=== PATIENT | female | born 1930 | race Caucasian/White ===

== ENCOUNTER 2018-09-24 03:52 | Observation (INO) ==
[2018-09-24 04:37] LABS: Baso # (Auto) 0.1 th/mm3 (0.0-0.2); Baso % (Auto) 0.5 % (0.0-2.0); Eos # (Auto) 0.2 th/mm3 (0.0-0.4); Eos % (Auto) 1.5 % (0.0-4.0); Hematocrit 44.1 % (35.0-46.0); Hemoglobin 15.1 gm/dL (11.6-15.3); Lymph % (Auto) 19.2 % (9.0-44.0); Mean Corpuscular HGB Conc 34.2 % (32.0-36.0); Mean Corpuscular Hemoglobin 30.8 pg (27.0-34.0); Mean Corpuscular Volume 90.1 fL (80.0-100.0); Mean Platelet Volume 9.1 fL (7.0-11.0); Mono # (Auto) 0.8 th/mm3 (0.0-0.9); Mono % (Auto) 5.5 % (0.0-8.0); Neut # (Auto) 11.3 th/mm3 (1.8-7.7); Neut % (Auto) 73.3 % (16.0-70.0); Platelet Count 314 th/mm3 (150-450); Red Blood Count 4.89 mil/mm3 (4.00-5.30); Red Cell Distribution Width 13.9 % (11.6-17.2); White Blood Count 15.5 th/mm3 (4.0-11.0)
[2018-09-24 04:51] LABS: Alanine Aminotransferase 16 U/L (10-53); Albumin 4.1 g/dL (3.4-5.0); Anion Gap 11 meq/L (5-15); Aspartate Aminotransferase 19 U/L (15-37); Blood Urea Nitrogen 32 mg/dL (7-18); Calcium 9.1 mg/dL (8.5-10.1); Carbon Dioxide 21.8 meq/L (21.0-32.0); Chloride 102 meq/L (98-107); Glomerular Filtration Rate 37 mL/min (>89); Glucose,Random 100 mg/dL (74-106); Lipase 268 U/L (73-393); Magnesium 1.9 mg/dL (1.5-2.5); Potassium 4.6 meq/L (3.5-5.1); Sodium 135 meq/L (136-145)
[2018-09-24 04:56] LABS: Alkaline Phosphatase 69 U/L (45-117); Total Protein 7.2 g/dL (6.4-8.2)
[2018-09-24] MEDS ORDERED: Sodium Chlor 0.9% Inj 500 ML IV.SIG SCH ×2 (05:00→07:00)
[2018-09-24 05:01] LABS: Activated Partial Thrombo Time 25.2 sec (23.4-31.7); Prothrombin Time 10.6 sec (9.8-11.6)
[2018-09-24 05:06] LABS: Creatine Kinase 72 U/L (26-192)
[2018-09-24] MEDS ORDERED: Morphine Inj 4 MG/ML Vial IV.PUSH ONE (05:13)
--- NOTE | 2018-09-24 05:51 | CT ---
EXAM DATE: 09/24/2018 5:37 AM EST AGE/SEX: 87 years / Female INDICATIONS: Left lower quadrant pain and diarrhea. CLINICAL DATA: This is the patient's initial encounter. Patient reports that signs and symptoms have been present for 1 day and indicates a pain score of 8/10. MEDICAL/SURGICAL HISTORY: Gastroesophageal reflux disease. Hypertension. Cholecystectomy. Isaac ia repair ORAL CONTRAST: No oral contrast ingested. RADIATION DOSE: 6.64 CTDI (mGy) COMPARISON: No prior exams available for comparison. TECHNIQUE: Multiple contiguous axial images were obtained through the abdomen and pelvis following b olus infusion of 46 ml Visipaque 320 (iodixanol) nonionic water-soluble contrast as a single exam d ose. No oral contrast ingested. Using automated exposure control and adjustment of the mA and/or kV according to patient size, radiation dose was kept as low as reasonably achievable to obtain optimal diagnostic quality images. DICOM format image data is available electronically for review and compar yuridia. FINDINGS: Lower chest: There is atelectasis at the lung bases. Hepatobiliary: No focal liver lesion is identified. Hepatic vasculature demonstrates no abnormality. Gallbladder is absent with innumerable clips in the gallbladder fossa. There is no bile duct dilatati on. Kidneys: No hydronephrosis or stone. There is a hyperdense lesion at the left upper pole kidney measu ring 1.4 cm with Hounsfield unit measurements of 35. There are 2 additional low-density lesions in th e mid left kidney that are incidental and too small to characterize measuring approximately 7 mm each . Adrenal Glands: Within normal limits. Spleen: Within normal limits. Pancreas: Within normal limits. Vascular: The aorta is nonaneurysmal. There is severe atherosclerotic disease. Bowel/Mesentery: The stomach and small bowel demonstrate no abnormality. No acute colon abnormality i s seen. There is no free intraperitoneal air or fluid. There is sigmoid diverticulosis. Abdominal Wall: No hernia is visualized. Retroperitoneum: No lymphadenopathy. Bladder: Not well visualized secondary to artifact but no definite abnormality is seen. Reproductive: Not well visualized secondary to artifact but no definite abnormality is seen. Inguinal: No lymphadenopathy or hernia. Musculoskeletal: No acute osseous abnormality is identified. There is levoscoliosis with multilevel d egenerative change throughout the lumbar spine. Left hip arthroplasty hardware is present and causes beam hardening artifact and partial obscuration of the surrounding structures. CONCLUSION: 1. No acute abnormality is identified to explain the left lower quadrant pain. There is sigmoid dive rticulosis but no inflammatory changes are present. 2. There is a 1.4 cm hyperdense lesion in the left upper pole kidney. This could represent a complex cyst or solid lesion. Suggest correlating with any prior imaging studies. If none are available sugg est elective renal ultrasound for further evaluation. 3. Severe atherosclerotic disease. Electronically signed by: Anshul Davis MD 09/24/2018 5:50 AM EST
[2018-09-24] MEDS ORDERED: Bisacodyl 10 MG Supp RECTAL PRN (06:28)
[2018-09-24] MEDS ORDERED: Acetaminophen 325 MG Tablet PO PRN (06:28)
--- NOTE | 2018-09-24 06:32 | ED ---
HPI General Chief complaint: Chest Pain Stated complaint: Medical Time Seen by Provider: 09/24/18 04:16 Source: patient and EMS Mode of arrival: EMS Limitations: no limitations History of Present Illness HPI narrative: Patient is an 87-year-old female who comes in after near [facility]. She says she got up to go to the bathroom tonight and had diarrhea. She says she then walked out to talk to her daughter and she was unable to speak and got very sweaty and almost passed out. She complains of left lower quadrant abdominal pain. She says while this was happening she had some slight pain to her chest, but no longer has the chest pain. She denies shortness of breath. She did see her doctor prior to coming to [place] a few months ago and had a negative stress test that time. She does have a history of aortic stenosis. She says she has had issues with diarrhea on and off but today it is much worse. She denies any recent antibiotic use. Her daughter reports that she has lost about 20 pounds in the past month because she does not want to eat or drink anything. Severity is moderate. Related Data Home Medications Medication Instructions Recorded Confirmed Norvasc 5 mg PO DAILY 09/24/18 09/24/18 aspirin [Aspir-81] 81 mg PO DAILY 09/24/18 09/24/18 atenolol 25 mg PO DAILY 09/24/18 09/24/18 dicyclomine 10 mg PO DAILY 09/24/18 09/24/18 ezetimibe [Zetia] 10 mg PO DAILY 09/24/18 09/24/18 meclizine 25 mg PO DAILY PRN 09/24/18 09/24/18 pantoprazole [Protonix] 40 mg PO DAILY 09/24/18 09/24/18 ranitidine HCl [Zantac] 300 mg PO DAILY 09/24/18 09/24/18 ropinirole [Requip] 0.25 mg PO HS 09/24/18 09/24/18 tolterodine [Detrol LA] 2 mg PO DAILY 09/24/18 09/24/18 valsartan [Diovan] 320 mg PO DAILY 09/24/18 09/24/18 Allergies Allergy/AdvReac Type Severity Reaction Status Date / Time No Known Allergies Allergy Verified 09/24/18 03:57 Review of Systems ROS: all other systems reviewed are negative Constitutional Denies chills and Denies fever(s) ENT Denies dizziness Cardiovascular Reports chest pain and Denies dyspnea Respiratory Denies cough and Denies dyspnea Gastrointestinal Reports abdominal pain and Reports diarrhea Musculoskeletal Denies myalgias and Denies arthralgias Integumentary/Breasts Denies sores and Denies wounds Neurologic Denies focal weakness and Denies numbness FORMERLY [facility], [facility] Medical History Medical History GERD (gastroesophageal reflux disease) (Acute) HTN (hypertension) (Acute) High cholesterol (Acute) Vertigo (Acute) Surgical History Surgical History History of hip surgery (Acute) Hx of cholecystectomy (Acute) Hx of hernia repair (Acute) Social History Social History Substance History: No History of Abuse Smoking Status: Former smoker How Often Do You Have a Drink Containing Alcohol: 2 to 4 times a month Recent Travel in [facility] within the Last 8 Weeks: No Recent Out of Country Travel within the Last 8 Weeks: No Immunization History Tetanus Immunization: Unsure Exam Narrative Exam Narrative: GENERAL: Awake and alert, in no acute distress. SKIN: Focused skin assessment warm/dry. No wounds or signs of infection. HEAD: Atraumatic. Normocephalic. EYES: Pupils equal and round. No scleral icterus. No injection or drainage. ENT: Mucous membranes pink and moist. NECK: Trachea midline. No JVD. CARDIOVASCULAR: Regular rate and rhythm. No murmur appreciated. RESPIRATORY: No accessory muscle use. Clear to auscultation. Breath sounds equal bilaterally. GASTROINTESTINAL: Abdomen soft, nondistended. Tender to palpation of the LLQ. No rebound or guarding. MUSCULOSKELETAL: No obvious deformities. No clubbing. No cyanosis. No edema. NEUROLOGICAL: Awake and alert. No obvious cranial nerve deficits. Motor grossly within normal limits. Normal speech. PSYCHIATRIC: Appropriate mood and affect; insight and judgment normal. Course Initial Documented Vital Signs Temperature 98.2 F 09/24/18 03:54 Pulse Rate 78 09/24/18 03:54 Respiratory Rate 18 09/24/18 03:54 Blood Pressure 132/65 09/24/18 03:54 Pulse Oximetry 97 09/24/18 03:54 Last Documented Vital Signs Temperature 98.2 F 09/24/18 03:54 Pulse Rate 79 09/24/18 05:55 Respiratory Rate 16 09/24/18 05:55 Blood Pressure 141/77 H 09/24/18 05:55 Pulse Oximetry 97 09/24/18 05:55 Medical Decision Making MDM Narrative Medical decision making narrative: Patient is an 87 year old female who comes in complaining of a near syncopal episode with abdominal pain and diarrhea. Exam shows LLQ tenderness. IV established, labs sent. Labs show a WBC count of 15. BUN is 32, Cr of 1.36. CT abd/pelvis shows no acute abnormalities. Given IVF, pain medicine. Patient will be placed in observation for near syncope, dehydration, continued diarrhea. Medical Screen Exam Complete: Yes Emergency Medical Condition: Yes Differential Diagnosis Differential Diagnosis: dehydration, colitis, diverticulitis, ACS Medical Records Medical records reviewed: Yes I reviewed the patient's medical records. Lab Data Lab results reviewed: Yes I reviewed the patient's lab results. Result diagrams: 09/24/18 04:20 09/24/18 04:20 Lab Results 09/24/18 09/24/18 09/24/18 Range/Units 04:20 04:20 04:20 WBC 15.5 H (4.0-11.0) th/mm3 RBC 4.89 (4.00-5.30) mil/mm3 Hgb 15.1 (11.6-15.3) gm/dL Hct 44.1 (35.0-46.0) % MCV 90.1 (80.0-100.0) fL MCH 30.8 (27.0-34.0) pg MCHC 34.2 (32.0-36.0) % RDW 13.9 (11.6-17.2) % Plt Count 314 (150-450) th/mm3 MPV 9.1 (7.0-11.0) fL Neut % (Auto) 73.3 H (16.0-70.0) % Lymph % (Auto) 19.2 (9.0-44.0) % [place] % (Auto) 5.5 (0.0-8.0) % Eos % (Auto) 1.5 (0.0-4.0) % Baso % (Auto) 0.5 (0.0-2.0) % Neut # (Auto) 11.3 H (1.8-7.7) th/mm3 Lymph # (Auto) 3.0 (1.0-4.8) th/mm3 [place] # (Auto) 0.8 (0.0-0.9) th/mm3 Eos # (Auto) 0.2 (0.0-0.4) th/mm3 Baso # (Auto) 0.1 (0.0-0.2) th/mm3 WBC Differential . Differential Comment Auto diff final PT 10.6 (9.8-11.6) sec INR 1.0 Ratio APTT 25.2 (23.4-31.7) sec Sodium 135 L (136-145) meq/L Potassium 4.6 (3.5-5.1) meq/L Chloride 102 (98-107) meq/L Carbon Dioxide 21.8 (21.0-32.0) meq/L Anion Gap 11 (5-15) meq/L BUN 32 H (7-18) mg/dL Creatinine 1.36 H (0.50-1.00) mg/dL Estimated GFR 37 L (>89) mL/min Random Glucose 100 (74-106) mg/dL Lactic Acid (0.4-2.0) mmol/L Calcium 9.1 (8.5-10.1) mg/dL Magnesium 1.9 (1.5-2.5) mg/dL Total Bilirubin 0.5 (0.2-1.0) mg/dL AST 19 (15-37) U/L ALT 16 (10-53) U/L Alkaline Phosphatase 69 (45-117) U/L Total Creatine Kinase 72 (26-192) U/L Troponin I Less than 0.02 L (0.02-0.05) ng/mL Total Protein 7.2 (6.4-8.2) g/dL Albumin 4.1 (3.4-5.0) g/dL Lipase 268 (73-393) U/L 09/24/18 Range/Units 04:20 WBC (4.0-11.0) th/mm3 RBC (4.00-5.30) mil/mm3 Hgb (11.6-15.3) gm/dL Hct (35.0-46.0) % MCV (80.0-100.0) fL MCH (27.0-34.0) pg MCHC (32.0-36.0) % RDW (11.6-17.2) % Plt Count (150-450) th/mm3 MPV (7.0-11.0) fL Neut % (Auto) (16.0-70.0) % Lymph % (Auto) (9.0-44.0) % [place] % (Auto) (0.0-8.0) % Eos % (Auto) (0.0-4.0) % Baso % (Auto) (0.0-2.0) % Neut # (Auto) (1.8-7.7) th/mm3 Lymph # (Auto) (1.0-4.8) th/mm3 [place] # (Auto) (0.0-0.9) th/mm3 Eos # (Auto) (0.0-0.4) th/mm3 Baso # (Auto) (0.0-0.2) th/mm3 WBC Differential Differential Comment PT (9.8-11.6) sec INR Ratio APTT (23.4-31.7) sec Sodium (136-145) meq/L Potassium (3.5-5.1) meq/L Chloride (98-107) meq/L Carbon Dioxide (21.0-32.0) meq/L Anion Gap (5-15) meq/L BUN (7-18) mg/dL Creatinine (0.50-1.00) mg/dL Estimated GFR (>89) mL/min Random Glucose (74-106) mg/dL Lactic Acid 1.5 (0.4-2.0) mmol/L Calcium (8.5-10.1) mg/dL Magnesium (1.5-2.5) mg/dL Total Bilirubin (0.2-1.0) mg/dL AST (15-37) U/L ALT (10-53) U/L Alkaline Phosphatase (45-117) U/L Total Creatine Kinase (26-192) U/L Troponin I (0.02-0.05) ng/mL Total Protein (6.4-8.2) g/dL Albumin (3.4-5.0) g/dL Lipase (73-393) U/L Imaging Data Radiologist's impression: Abdomen/Pelvis CT 09/24/18 04:16 CONCLUSION: 1. No acute abnormality is identified to explain the left lower quadrant pain. There is sigmoid diverticulosis but no inflammatory changes are present. 2. There is a 1.4 cm hyperdense lesion in the left upper pole kidney. This could represent a complex cyst or solid lesion. Suggest correlating with any prior imaging studies. If none are available suggest elective renal ultrasound for further evaluation. 3. Severe atherosclerotic disease. ECG Data EKG Prior to Arrival: No Attestation: I personally reviewed and interpreted this ECG as follows: Interpretation: ECG shows left bundle branch block Discharge Plan Discharge Disposition Patient Disposition: ED Admit(ED Internal Use Only) Discharge Condition Condition: Stable Discharge Details Diagnosis: Near syncope, Dehydration, Diarrhea Physicians Team ED Provider: Samantha Pedraza Attending Provider: Zabrina Ecsobar Status ED Status: Admitted Observation Patient
--- NOTE | 2018-09-24 07:47 | P.HPIM ---
History of Present Illness Primary Care Physician: José Nash History of Present Illness: 87-year-old pleasant female with history of HTN, HLD, hyperthyroidism , multinodular goiter, aortic stenosis, and GERD presented to the ED after feeling like she was going to pass out earlier this morning. The patient states that she was sleeping when she began to have diarrhea around 3 AM. She states she got up to use the restroom and had a significant amount of watery, nonbloody diarrhea. On her way back to her bedroom she states she began feeling lightheaded, sweaty, and like she was going to pass out. She states she got her daughter but was unable to communicate. Her daughter who is present at the bedside states that the patient was just staring blankly. EMS was called and within 5 minutes the patient was able to speak. She states that she had some left-sided chest pain that radiated to her left shoulder at the time of the event. She denied any shortness of breath, palpitations, or vomiting. She states that she was nauseated. Presently, she reports that she is feeling much better but continues to have watery diarrhea. She states she has had about 5-6 episodes total and she is experiencing some incontinence. She also complains of some left lower quadrant crampy abdominal pain associated with the diarrhea. She states she has a history of diverticulitis which this feels similar to. She also reports in the last month she has lost about 14 lb which she attributes to poor PO intake. She states that she has dysphagia and can only force herself to swallow a couple bites of food before she feels like vomiting and choking. She is able to tolerate liquids. The dysphagia has been present for approximately a month. She has a h/o of multinodular goiter and on ultrasound last year was noted to have a new ~3.5 cm nodule in the left lower lobe (reviewed endocrinology notes that patient provides). She had an uptake scan which showed the nodule was hot and she was started on methimazole. She reports she had blood work about a week ago for her health workers her called her yesterday and informed her she was going to increase her methimazole to 10 mg daily. She states aside from the dysphagia she also has a cough that has always been attributed to sinus drainage as well as a pain in the left side of her neck where she states she has felt a lump. She denies any history of head or neck radiation. She used to smoke but quit in 1980. The patient is from [place] but has been here for the past month living with her daughter for part of the year. She follows with a wire weaving loom setter, primary care physician, an health workers in [place]. She recently saw Dr. Levy (local wire weaving loom setter) in the past month at the urging of her PCP back in [place] whom she states was very concerned about her aortic stenosis. She apparently had a stress test that was negative. She states her last echo was in April. She states she has passed out before but denies CHF or coronary artery disease though she has never had a cath. She also reports in the past she was told she may have a small tumor in her kidney but she states nothing more was done. CT A/P here in the ED showed a 1.4 cm hyperdense lesion in the left upper pole. PMH: HTN, hyperthyroidism, multinodular goiter, HLD, GERD, OA, macular degeneration diverticulosis, vertigo, aortic stenosis Surgical Hx: L hip replacement, left thumb surgery, cataract, T&A, umbilical hernia repair, lap maria luz, D&C, hemorrhoidectomy, right knee arthroscopy Family Hx: mother in her 90s froma stroke, father at 43 from a head injury Social Hx: quit smoking 1980, prior smoked up to 1PPD x 15 years, denies EtOH or recreational drug - Diagnosis (1) Diverticulitis (2) Near syncope (3) Dehydration (4) Diarrhea (5) Dysphagia (6) Weight loss Review of Systems All other systems reviewed negative except as stated in HPI [facility] - History History Provided By: Patient - Medical History Medical History: Medical History (Last Updated 09/24/18 @ 08:12 by Zabrina Escobar MD) Diverticulosis GERD (gastroesophageal reflux disease) HTN (hypertension) High cholesterol Hyperthyroidism Vertigo - Surgical History Surgical History: Surgical History (Last Reviewed 09/24/18 @ 07:06 by Melly Grider) History of hip surgery Hx of cholecystectomy Hx of hernia repair - Family History Family History: Family History (Last Updated 09/24/18 @ 08:12 by Zabrina Escobar MD) Mother Stroke - Social History I have reviewed the patient's Social History: Yes - Tobacco History Smoking Status: Former smoker - Alcohol History How Often Do You Have a Drink Containing Alcohol: 2 to 4 times a month - Substance Use History Substance History: No History of Abuse - Travel History Recent Travel in the [place] Within the Last 8 Weeks: No Recent Travel Out of the Country Within the Last 8 Weeks: No - Immunization History Tetanus Immunization: Unsure Medications and Allergies Active Medications: Active Medications Acetaminophen (Tylenol) 650 mg PO Q4H PRN PRN Reason: Temp > 100.4 Al Hydroxide/Mg Hydroxide (Milk Of Magnesia Liq) 30 ml PO Q12H PRN PRN Reason: Mild Constipation Aspirin (Ecotrin) 81 mg PO DAILY HERLINDA Bisacodyl (Dulcolax Supp) 10 mg RECTAL DAILY PRN PRN Reason: SEVERE CONSITIPATION Sodium Chloride (Ns Inj) 1,000 mls @ 100 mls/hr IV.CONT .Q10H HERLINDA Lactulose (Lactulose Liq) 30 ml PO DAILY PRN PRN Reason: SEVERE CONSITIPATION Ondansetron HCl (Zofran Inj) 4 mg IV.PUSH Q6H PRN PRN Reason: NAUSEA OR VOMITING Pantoprazole Sodium (Protonix) 40 mg PO DAILY HERLINDA Ropinirole HCl (Requip) 0.25 mg PO HS HERLINDA Senna/Docusate Sodium (Paulette-Colace) 1 tab PO BID HERLINDA Sennosides (Senokot) 17.2 mg PO Q12H PRN PRN Reason: Moderate Constipation Sodium Chloride (Ns Flush) 2 ml IV.FLUSH BID HERLINDA Sodium Chloride (Ns Flush) 2 ml IV.FLUSH PRN PRN PRN Reason: FLUSH AFTER USING IV ACCESS Allergies Allergy/AdvReac Type Severity Reaction Status Date / Time No Known Allergies Allergy Verified 09/24/18 03:57 Home Medications Medication Instructions Recorded Confirmed Type Norvasc 5 mg PO DAILY 09/24/18 09/24/18 History aspirin [Aspir-81] 81 mg PO DAILY 09/24/18 09/24/18 History atenolol 25 mg PO DAILY 09/24/18 09/24/18 History dicyclomine 10 mg PO DAILY 09/24/18 09/24/18 History ezetimibe [Zetia] 10 mg PO DAILY 09/24/18 09/24/18 History meclizine 25 mg PO DAILY PRN 09/24/18 09/24/18 History methimazole 10 mg PO DAILY 09/24/18 09/24/18 History pantoprazole [Protonix] 40 mg PO DAILY 09/24/18 09/24/18 History ranitidine HCl [Zantac] 300 mg PO DAILY 09/24/18 09/24/18 History ropinirole [Requip] 0.25 mg PO HS 09/24/18 09/24/18 History tolterodine [Detrol LA] 2 mg PO DAILY 09/24/18 09/24/18 History valsartan [Diovan] 320 mg PO DAILY 09/24/18 09/24/18 History Exam Vital signs: Vital Signs 09/24/18 03:54 09/24/18 05:55 09/24/18 07:20 Temperature 98.2 F Pulse Rate 78 79 Respiratory Rate 18 16 Blood Pressure 132/65 141/77 H Pulse Oximetry 97 97 96 09/24/18 07:22 Temperature Pulse Rate 75 Respiratory Rate 20 Blood Pressure 113/58 L Pulse Oximetry 95 Intake & Output 09/23/18 09/24/18 09/24/18 18:59 06:59 18:59 Intake Total 500 / 500 Balance 500 / 500 Weight 55.338 kg Intake: IV 500 / 500 NS Inj 500 ML @ 1000 mls/hr IV. 500 / 500 SIG BOLUS HERLINDA Rx#:[id number] Narrative: GENERAL: WN, WD pleasant elderly female resting comfortably in bed in [facility]. SKIN: Warm and dry. No rashes, jaundice, ecchymoses. HEENT: AT/NC. Nasal cannula in place. PERRLA. EOMI. No nystagmus. MMM. Dentures in place. Uvula midline. NECK: Supple no tender LAD or JVD. There is a ~1cm, firm, nonmobile palpable nodule in her left superior anterior cervical chain. No overlying skin changes. No other appreciable lymphadenopathy. Multinodular goiter. HEART: RRR with a harsh 3/6 OLY that radiates to the carotids bilaterally. LUNGS: Breathing comfortably. CTAB without wheezes or crackles. ABDOMEN: +BS, soft, LLQ TTP. No guarding or rebound. EXTREMITIES: No LE edema. 2+ pedal pulses. NEURO: Awake and alert. CN II-XII intact. Strength 5/5 bilaterally. Sensation intact. PSYCH: Appropriate mood and affect. Results - Labs CBC & Chem 7: 09/24/18 04:20 09/24/18 04:20 Labs: Short CBC 09/24/18 Range/Units 04:20 WBC 15.5 H (4.0-11.0) th/mm3 Hgb 15.1 (11.6-15.3) gm/dL Hct 44.1 (35.0-46.0) % Plt Count 314 (150-450) th/mm3 BMP 09/24/18 04:20 Sodium 135 L Potassium 4.6 Chloride 102 Carbon Dioxide 21.8 BUN 32 H Creatinine 1.36 H Calcium 9.1 Cardiac Enzymes 09/24/18 Range/Units 04:20 Total Creatine Kinase 72 (26-192) U/L Troponin I Less than 0.02 L (0.02-0.05) ng/mL Liver Function 09/24/18 Range/Units 04:20 Total Bilirubin 0.5 (0.2-1.0) mg/dL AST 19 (15-37) U/L ALT 16 (10-53) U/L Alkaline Phosphatase 69 (45-117) U/L Albumin 4.1 (3.4-5.0) g/dL - Imaging Abdomen/Pelvis CT 09/24/18 04:16 CONCLUSION: 1. No acute abnormality is identified to explain the left lower quadrant pain. There is sigmoid diverticulosis but no inflammatory changes are present. 2. There is a 1.4 cm hyperdense lesion in the left upper pole kidney. This could represent a complex cyst or solid lesion. Suggest correlating with any prior imaging studies. If none are available suggest elective renal ultrasound for further evaluation. 3. Severe atherosclerotic disease. Caprini VTE Risk Assessment Caprini VTE Risk Assessment: Moderate/High Risk (score >= 2) Caprini Risk Assessment Model: Point Value = 1 Point Value = 2 Point Value = 3 Point Value = 5 Age 41-60 Minor surgery BMI > 25 kg/m2 Swollen legs Varicose veins or History of unexplained or recurrent spontaneous Oral contraceptives or hormone replacement Sepsis (< 1 month) Serious lung disease, including pneumonia (< 1 month) Abnormal pulmonary function Acute myocardial infarction Congestive heart failure (< 1 month) History of inflammatory bowel disease Medical patient at bed rest Age 61-74 Arthroscopic surgery Major open surgery (> 45 min) Laparoscopic surgery (> 45 min) Malignancy Confined to bed (> 72 hours) Immobilizing plaster cast Central venous access Age >= 75 History of VTE Family history of VTE Factor V Leiden Prothrombin [id number] Lupus anticoagulant Anticardiolipin antibodies Elevated serum homocysteine Heparin-induced thrombocytopenia Other congenital or acquired thrombophilia Stroke (< 1 month) Elective arthroplasty Hip, pelvis, or leg fracture Acute spinal cord injury (< 1 month) Prophylaxis Regimen: Total Risk Factor Score Risk Level Prophylaxis Regimen 0-1 Low Early ambulation 2 Moderate Order ONE of the following: *Sequential Compression Device (SCD) *Heparin 5000 units SQ BID 3-4 Higher Order ONE of the following medications: *Heparin 5000 units SQ TID *Enoxaparin/Lovenox 40 mg SQ daily (WT < 150 kg, CrCl > 30 mL/min) *Enoxaparin/Lovenox 30 mg SQ daily (WT < 150 kg, CrCl > 10-29 mL/min) *Enoxaparin/Lovenox 30 mg SQ BID (WT < 150 kg, CrCl > 30 mL/min) AND/OR *Sequential Compression Device (SCD) 5 or more Highest Order ONE of the following medications: *Heparin 5000 units SQ TID (Preferred with Epidurals) *Enoxaparin/Lovenox 40 mg SQ daily (WT < 150 kg, CrCl > 30 mL/min) *Enoxaparin/Lovenox 30 mg SQ daily (WT < 150 kg, CrCl > 10-29 mL/min) *Enoxaparin/Lovenox 30 mg SQ BID (WT < 150 kg, CrCl > 30 mL/min) AND *Sequential Compression Device (SCD) Assessment and Plan - Assessment (1) Diverticulitis Code(s): K57.92 - Diverticulitis of intestine, part unspecified, without perforation or abscess without bleeding Status: Acute (2) Near syncope Code(s): R55 - Syncope and collapse Status: Acute (3) Dehydration Code(s): E86.0 - Dehydration Status: Acute (4) Diarrhea Code(s): R19.7 - Diarrhea, unspecified Status: Acute (5) Dysphagia Code(s): R13.10 - Dysphagia, unspecified Status: Acute (6) Weight loss Code(s): R63.4 - Abnormal weight loss Status: Acute - Plan 87-year-old female with history of HTN, HLD, hyperthyroidism, multinodular goiter, aortic stenosis, and GERD presenting with diarrhea, dehydration, near-syncope, and dysphagia. 1. Diarrhea - CT A/P showing sigmoid diverticulosis with no inflammatory changes - Pt with leukocytosis (WBC 15.5), LLQ pain, diarrhea, and known diverticulosis therefore will treat for early diverticulitis with Cipro and Flagyl - Pain control - Antiemetics PRN - Check C. diff and stool studies - IV hydration - Clear liquids 2. MARY JO - Pt with no history of CKD - On admission, creatinine 1.36 with BUN 32 and GFR 37 - Given elevated BUN:Cr ratio, like prerenal secondary to dehydration from GI losses - Bolused in the ED - Continue NS at 100 ml/hr - Avoid nephrotoxins - Continue to watch renal function closely 3. Near-syncope - Pt likely experienced a near-syncopal episode secondary to dehydration/ orthostatics from diarrhea but she does have coronary risk factors including HTN , HLD, history of tobacco abuse, and severe atherosclerosis seen on CT A/P. She also has known aortic stenosis - Serial enzymes to r/o ACS (first troponin negative and patient recently had negative stress test in last month) - Check 2D echo given aortic stenosis - Hydrate - Treat underlying diarrhea 4. Dysphagia - Differentials include compression (thyroid, mass, etc.), esophageal stricture or dysmotility, severe GERD - Obtain thyroid/neck ultrasound given history of hot nodule and multinodular goiter as well as to assess firm palpable nodule in left neck. Pt recently needed methimazole increased; possibly nodule is enlarging? - ST for swallow eval - Consult GI for possible EGD - Clear liquids 5. Left cervical nodule - Obtain ultrasound as above 6. Left renal lesion - CT A/P showing 1.4 cm left upper pole lesion and pt has been told she may have a kidney "tumor" in the past but hasn't been worked up - Will obtain renal ultrasound 7. HTN - Resume home atenolol and Norvasc - Monitor BPs 8. HLD - Resume home Zetia 9. GERD - Continue home Protonix and Zantac 10. Aortic stenosis - Obtaining 2D echo as stated above - Continue atenolol 11. Hyperthyroidism - Continue home methimazole - Obtaining u/s as above - TSH checked last week and being addressed by health workers DVT prophylaxis: heparin Code Status: FULL Discussed Condition With: Patient and her daughter
[2018-09-24] MEDS ORDERED: Morphine Sulfate Inj 2 MG/ML Vial IV.PUSH PRN (08:29)
[2018-09-24 09:28] LABS: Bacteria,Urine Moderate /hpf; Bilirubin,Urine Negative (Negative); Clarity,Urine Hazy (Clear); Color,Urine Yellow (Yellw/Straw); Glucose,Urine (UA) Negative (Negative); Leukocyte Esterase,Urine Small (Negative); Nitrite,Urine Negative (Negative); Specific Gravity,Urine 1.014 (1.002-1.035); Squamous Epithelial Cell,Urine <1 /hpf (0-5)
[2018-09-24] MEDS: metroNIDAZOLE 500 MG Tablet PO SCH ×3 (10:26→23:45)
[2018-09-24] MEDS: Sod Chloride 0.9% Inj 1,000 ML IV.CONT SCH ×2 (10:26→21:12)
[2018-09-24] MEDS: Senna/Docusate Sodium 8.6/50 MG Tablet PO SCH ×2 (10:27→21:13)
[2018-09-24] MEDS: Heparin - SQ 10,000 UNITS/ML Vial SQ SCH ×2 (10:27→21:14)
--- NOTE | 2018-09-24 10:40 | US ---
EXAM DATE: 09/24/2018 10:13 AM EST AGE/SEX: 87 years / Female INDICATIONS: Left flank pain. CLINICAL DATA: This is the patient's initial encounter. Patient reports that signs and symptoms have been present for 1 day and indicates a pain score of 0/10. MEDICAL/SURGICAL HISTORY: . GERD. Hypercholesterolemia. Hypertension. Vertigo. Multinodular goiter. . Hip surgery. Cholecystectomy. Hernia repair. COMPARISON: [facility] [place]OM[place] & PELVIS W CONTRAST, 09/24/2018. . MEASUREMENTS: Right Kidney:__8.7 x 4.2 x 3.9 cm Left Kidney:__9.5 x 4.7 x 4.2 cm FINDINGS: Right Kidney: Normal echotexture and cortical thickness. No mass or hydronephrosis. Left Kidney: Normal in size, shape and position. No hydronephrosis. There is a cyst along the upper p ole measuring 1.5 x 1.6 cm. There is a hyperechoic lesion along the mid pole measuring 1 cm. This is suggestive of an angiomyolipoma. Bladder: Within normal limits given the degree of distension. Other: None. CONCLUSION: 1. No evidence of hydronephrosis. 2. Benign-appearing cyst along the upper pole the left kidney measuring 1.6 cm. 3. 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 Electronically signed by: Eduardo Burroughs MD 09/24/2018 10:39 AM EST
--- NOTE | 2018-09-24 10:44 | US ---
EXAM DATE: 09/24/2018 10:19 AM EST AGE/SEX: 87 years / Female INDICATIONS: Dysphagia and mass in left upper neck. CLINICAL DATA: This is the patient's initial encounter. Patient reports that signs and symptoms have been present for 1 day and indicates a pain score of 0/10. MEDICAL/SURGICAL HISTORY: . Thyroid disorder. GERD. Hypercholesterolemia. Hypertension. Grady tigo. Multinodular goiter. . Hip surgery. Cholecystectomy. Hernia repair. COMPARISON: No prior exams available for comparison. MEASUREMENTS: Right Lobe: 4.9 x 2.5 x 2.7 cm Left Lobe: 8.2 x 2.3 x 2.2 cm FINDINGS: Right Lobe: The right lobe is heterogeneous. There is a 1.3 cm complex nodule in the midpole. There is a 2.3 x 2.2 cm solid nodule in the midpole. Left Lobe: The left lobe is diffusely enlarged and heterogeneous. There is a complex nodule in the mi dpole measuring 2.9 x 2.5 cm. It appears that the left lobe extends into the superior mediastinum sug gestive of a substernal goiter. Isthmus: The isthmus is thickened at 6 mm. Other: None. CONCLUSION: 1. Diffusely enlarged and heterogeneous thyroid gland. The left lobe is larger than the right. 2. Multiple complex nodules are noted bilaterally. 3. It appears that the left lobe extends below the clavicle suggestive of a substernal goiter. Electronically signed by: Eduardo Burroughs MD 09/24/2018 10:42 AM EST
[2018-09-24] MEDS: Ciprofloxacin 500 MG Tablet PO SCH ×2 (12:05→21:14)
--- NOTE | 2018-09-24 13:15 | ECG ---
Date Performed: 09/24/2018 Time Performed: 03:57:50 PTAGE: 87 years EKG: Sinus rhythm MARKED LEFT AXIS DEVIATION LEFT BUNDLE BRANCH BLOCK ABNORMAL ECG NO PREVIOUS TRACING DOCTOR: Prakash Brennan Interpretating Date/Time 09/24/2018 13:11:44
--- NOTE | 2018-09-24 18:48 | ECHRPT ---
Indication: SYNCOPE CONCLUSIONS The left ventricular systolic function is hyperdynamic with an estimated ejection fraction in the ra nge of 65- 70%. Mild concentric left ventricular hypertrophy. Doppler parameters are consistent with impaired left ventricular relaxtion (grade 1 diastolic dysfun ction). Moderate to severe aortic valve stenosis (peak velocity 3.31, peak grad 44, mean grad 23, CLAUDIA 0.50., SVI 27, could represent low flow low gradient ). Trace aortic valve regurgitation. There is trace tricuspid valve regurgitation. Trivial pulmonary valve regurgitation. BP: / HR: Rhythm: Sinus MEASUREMENTS (Male / Female) Normal Values Technical Quality:Fair 2D ECHO LV Diastolic Diameter PLAX 4.7 cm 4.2 - 5.9 / 3.9 - 5.3 cm LV Systolic Diameter PLAX 3.1 cm IVS Diastolic Thickness 1.0 cm 0.6 - 1.0 / 0.6 - 0.9 cm LVPW Diastolic Thickness 1.0 cm 0.6 - 1.0 / 0.6 - 0.9 cm LV Relative Wall Thickness 0.4 LVOT Diameter 1.6 cm LA Systolic Diameter LX 3.3 cm 3.0 - 4.0 / 2.7 - 3.8 cm M-MODE Aortic Root Diameter MM 2.1 cm AV Cusp Separation MM 0.7 cm DOPPLER AV Peak Velocity 311.0 cm/s AV Peak Gradient 38.7 mmHg AV Mean Gradient 22.0 mmHg AV Velocity Time Integral 70.2 cm AI Peak Velocity 262.0 cm/s AI Peak Gradient 27.5 mmHg AI Pressure Half Time 570.0 ms LVOT Peak Velocity 90.2 cm/s LVOT Peak Gradient 3.3 mmHg LVOT Velocity Time Integral 18.7 cm AV Area Cont Eq vti 0.5 cm AV Area Cont Eq pk 0.6 cm MV Area PHT 7.9 cm Mitral E Point Velocity 68.1 cm/s Mitral A Point Velocity 116.0 cm/s Mitral E to A Ratio 0.6 LV E' Lateral Velocity 4.7 cm/s Mitral E to LV E' Lateral Ratio 14.6 LV E' Septal Velocity 5.8 cm/s Mitral E to LV E' Septal Ratio 11.8 TR Peak Velocity 231.0 cm/s TR Peak Gradient 21.3 mmHg PV Peak Velocity 95.0 cm/s PV Peak Gradient 3.6 mmHg FINDINGS LEFT VENTRICLE The left ventricular systolic function is hyperdynamic with an estimated ejection fraction in the ra nge of 65- 70%. Normal left ventricular size. Mild concentric left ventricular hypertrophy. No regional wall motion abnormalities are present. Doppler parameters are consistent with impaired left ventricular relaxtion (grade 1 diastolic dysfun ction). RIGHT VENTRICLE Normal right ventricular size and systolic function. LEFT ATRIUM The left atrial size is upper limits of normal. RIGHT ATRIUM The right atrial size is normal. ATRIAL SEPTUM Thickened atrial septum is noted with morphological features most consistent with a lipomatous atria l septum. AORTA The aortic root and proximal ascending aorta are normal in size on limited imaging. MITRAL VALVE Structurally normal mitral valve. Mild mitral annular calcification. No mitral valve regurgitation. No mitral valve stenosis. AORTIC VALVE Trileaflet aortic valve. Diffuse calcification of the aortic valve. Trace aortic valve regurgitation. Moderate to severe aortic valve stenosis (peak velocity 3.31, peak grad 44, mean grad 23, CLAUDIA 05., S 27, could represent low flow low gradient ). TRICUSPID VALVE Structurally normal tricuspid valve. There is trace tricuspid valve regurgitation. PULMONARY VALVE Trivial pulmonary valve regurgitation. VESSELS The inferior vena cava is normal in size. PERICARDIUM No pericardial effusion. Terrance Lee DO (Electronically Signed) Final Date:24 September 2018 18:47
--- NOTE | 2018-09-24 20:13 | MB ---
cc: Jia Malik MD DATE: 09/24/2018 TYPE OF CONSULTATION: GI consult. REASON FOR CONSULTATION: Diarrhea. HISTORY OF PRESENT ILLNESS: This is an 87-year-old female patient with multiple medical problems including hypertension, hyperthyroidism, aortic stenosis and gastroesophageal reflux disease, who presented to the emergency room after having several episodes of watery diarrhea without any blood, described 5-6 times, associated with fatigue, presyncopal attack and dizziness. The patient also did complain of left lower quadrant abdominal pain and has a weight loss of 14 pounds over the last month that she attributed to poor oral intake and loss of appetite. The patient had a similar attack in the past and she had a colonoscopy several years ago that showed diverticulosis, and she was treated also for diverticulitis, but cannot recall when that was. The patient also did complain of dysphagia for the last 1 month to both solid and liquid, that is constant, not progressive over the period of time. REVIEW OF SYSTEMS: All 14 points review of systems negative, other than the ones mentioned in the history of present illness. PAST MEDICAL HISTORY: 1. Diverticulosis. 2. Gastroesophageal reflux disease. 3. Hypertension. 4. Dyslipidemia. 5. Hyperthyroidism. 6. Multinodular goiter. 7. Aortic stenosis. PAST SURGICAL HISTORY: 1. History of hip surgery. 2. Cholecystectomy. 3. History of hernia repair. PSYCHOSOCIAL HISTORY: The patient lives with her daughter. She is an ex-smoker, drinks occasionally 2-4 times a month. No drug abuse. MEDICATIONS: She is on: 1. Aspirin. 2. Dulcolax. 3. Sodium chloride. 4. Lactulose. 5. Zofran. 6. Pantoprazole. ALLERGIES: NO KNOWN DRUG ALLERGIES. PHYSICAL EXAMINATION: GENERAL: The patient was found to be comfortable, not in distress or in pain, well hydrated. VITAL SIGNS: Within normal limits with blood pressure of 130/65, respiratory rate of 18, pulse 78. HEENT: Normocephalic, atraumatic. Pupils equal and reactive to light. NECK: Supple neck. No lymphadenopathy. No thyromegaly. CHEST: Clear to auscultation bilaterally. No crackles or wheezes. CARDIOVASCULAR: Regular rate and rhythm. No murmurs. ABDOMEN: Soft, nontender. No hepatosplenomegaly. No palpable masses. EXTREMITIES: Normal pulses. No edema. NEUROLOGIC: Nonfocal. Cranial nerves 2-12 grossly intact. SKIN: No rashes. ASSESSMENT: An 87-year-old female patient with the following problems: 1. Left lower quadrant abdominal pain, diarrhea, dehydration and presyncope, with a CAT scan showing evidence of diverticulosis, but no diverticulitis. 2. History of dysphagia to solid and liquid for 1 month. 3. Significant weight loss of 14 pounds over 1 month secondary to poor oral intake. 4. Previous colonoscopy several years ago that showed evidence of polyps, but cannot recall the date of the procedure or what type of polyps were removed. PLAN: Agree with continuing current treatment plan with Cipro and Flagyl, although the reviewing of CAT scan did not show evidence of diverticulitis. We will need to proceed with colonoscopy possibly Wednesday or Wednesday, after giving her proper hydration and continuing antibiotics for 2-3 days. The patient also will need an upper endoscopy for evaluation of dysphagia. Meanwhile, continue supportive care, correction of electrolyte abnormalities, aggressive hydration. Further recommendation to follow. MD MELANIE Morgan/pam , 04:41 PM , 04:51 PM KASSI
[2018-09-25] MEDS: Sod Chloride 0.9% Inj 1,000 ML IV.CONT SCH ×3 (04:21→22:09)
[2018-09-25] MEDS: metroNIDAZOLE 500 MG Tablet PO SCH ×3 (05:35→22:02)
[2018-09-25 07:26] LABS: Baso % (Auto) 0.4 % (0.0-2.0); Eos # (Auto) 0.2 th/mm3 (0.0-0.4); Eos % (Auto) 2.5 % (0.0-4.0); Hematocrit 38.1 % (35.0-46.0); Hemoglobin 12.7 gm/dL (11.6-15.3); Lymph # (Auto) 2.8 th/mm3 (1.0-4.8); Lymph % (Auto) 43.8 % (9.0-44.0); Mean Corpuscular HGB Conc 33.4 % (32.0-36.0); Mean Corpuscular Hemoglobin 31.3 pg (27.0-34.0); Mean Corpuscular Volume 93.7 fL (80.0-100.0); Mean Platelet Volume 9.2 fL (7.0-11.0); Mono # (Auto) 0.5 th/mm3 (0.0-0.9); Mono % (Auto) 7.1 % (0.0-8.0); Neut # (Auto) 2.9 th/mm3 (1.8-7.7); Neut % (Auto) 46.2 % (16.0-70.0); Platelet Count 229 th/mm3 (150-450); Red Blood Count 4.07 mil/mm3 (4.00-5.30); Red Cell Distribution Width 13.9 % (11.6-17.2); White Blood Count 6.3 th/mm3 (4.0-11.0)
[2018-09-25 07:54] LABS: Albumin 3.1 g/dL (3.4-5.0); Calcium 7.4 mg/dL (8.5-10.1); Carbon Dioxide 23.7 meq/L (21.0-32.0); Total Protein 5.8 g/dL (6.4-8.2)
[2018-09-25] MEDS: Senna/Docusate Sodium 8.6/50 MG Tablet PO SCH ×2 (08:46→22:03)
[2018-09-25] MEDS: Ciprofloxacin 500 MG Tablet PO SCH ×2 (08:46→22:02)
[2018-09-25] MEDS: Heparin - SQ 10,000 UNITS/ML Vial SQ SCH ×2 (08:46→22:05)
--- NOTE | 2018-09-25 09:08 | P.PNIM ---
Subjective Interval history: Pt seen and examined for f/u diarrhea, dysphagia, and near-syncope. Diarrhea has resolved since yesterday afternoon. She reports overall she is feeling better. Tolerating liquids. No further sensation of passing out. Denies CP or SOB. Physical Exam Vital signs: Vital Signs 09/24/18 10:21 09/24/18 11:16 09/24/18 16:00 Temperature 98.2 F 98.1 F Pulse Rate 76 75 68 Respiratory Rate 14 16 Blood Pressure 126/56 L 124/60 Pulse Oximetry 92 L 95 09/24/18 20:00 09/25/18 00:00 09/25/18 03:53 Temperature 98.0 F 98.1 F 97.5 F L Pulse Rate 77 81 76 Respiratory Rate 16 16 16 Blood Pressure 131/60 118/56 L 109/59 L Pulse Oximetry 94 L 94 L 94 L 09/25/18 07:39 Temperature 98.3 F Pulse Rate 66 Respiratory Rate 14 Blood Pressure 127/62 Pulse Oximetry 93 L Intake & Output 09/24/18 09/25/18 09/25/18 18:59 06:59 18:59 Intake Total 500 / 500 1000 / 1000 Balance 500 / 500 1000 / 1000 Weight 46.266 kg Intake: IV 500 / 500 1000 / 1000 NS Inj 1,000 ML @ 100 mls/hr IV 1000 / 1000 .CONT .Q10H HERLINDA Rx#:[id number] NS Inj 500 ML @ 1000 mls/hr IV. 500 / 500 SIG BOLUS HERLINDA Rx#:[id number] Other: Weight On Admission 122 kg Narrative: GENERAL: WN, WD pleasant elderly female resting comfortably in bed in [facility]. SKIN: Warm and dry. No rashes, jaundice, ecchymoses. NECK: Supple no tender LAD or JVD. There is a ~1cm, firm, nonmobile palpable nodule in her left superior anterior cervical chain. No overlying skin changes. No other appreciable lymphadenopathy. Multinodular goiter. HEART: RRR with a harsh 3/6 OLY that radiates to the carotids bilaterally. LUNGS: CTAB without wheezes or crackles. ABDOMEN: +BS, soft, NT, ND. EXTREMITIES: No LE edema. NEURO: Awake and alert. PSYCH: Appropriate mood and affect. Results - Labs CBC & Chem 7: 09/25/18 05:50 09/25/18 05:50 Laboratory Results - last 24 hr 09/24/18 09/24/18 09/24/18 08:19 09:47 15:57 WBC RBC Hgb Hct MCV MCH MCHC RDW Plt Count MPV Neut % (Auto) Lymph % (Auto) [place] % (Auto) Eos % (Auto) Baso % (Auto) Neut # (Auto) Lymph # (Auto) [place] # (Auto) Eos # (Auto) Baso # (Auto) WBC Differential Differential Comment Sodium Potassium Chloride Carbon Dioxide Anion Gap BUN Creatinine Estimated GFR Random Glucose Calcium Calcium Adj for Albumin Total Bilirubin AST ALT Alkaline Phosphatase Troponin I Less than 0.02 L Less than 0.02 L Total Protein Albumin Urine Color Yellow Urine Clarity Hazy H Urine pH 7.0 Ur Specific Osborne 1.014 Urine Protein Negative Urine Glucose (UA) Negative Urine Ketones Negative Urine Occult Blood Small H Urine Nitrate Negative Urine Bilirubin Negative Urine Urobilinogen Less than 2 Ur Leukocyte Esterase Small H Urine RBC 2 Urine WBC 2 Ur Squamous Epith Cells <1 Urine Bacteria Moderate H Micro UA Comment Culture indicated Ur Microscopic Review Not Reportable Urine Culture Comments Culture indicated 09/25/18 09/25/18 05:50 05:50 WBC 6.3 RBC 4.07 Hgb 12.7 D Hct 38.1 MCV 93.7 D MCH 31.3 MCHC 33.4 RDW 13.9 Plt Count 229 MPV 9.2 Neut % (Auto) 46.2 Lymph % (Auto) 43.8 [place] % (Auto) 7.1 Eos % (Auto) 2.5 Baso % (Auto) 0.4 Neut # (Auto) 2.9 Lymph # (Auto) 2.8 [place] # (Auto) 0.5 Eos # (Auto) 0.2 Baso # (Auto) 0.0 WBC Differential . Differential Comment Auto diff final Sodium 142 Potassium 4.0 Chloride 112 H D Carbon Dioxide 23.7 Anion Gap 6 BUN 14 Creatinine 0.94 Estimated GFR 56 L Random Glucose 87 Calcium 7.4 L* D Calcium Adj for Albumin 8.1 L Total Bilirubin 0.5 AST 11 L ALT 11 Alkaline Phosphatase 56 Troponin I Total Protein 5.8 L D Albumin 3.1 L D Urine Color Urine Clarity Urine pH Ur Specific Osborne Urine Protein Urine Glucose (UA) Urine Ketones Urine Occult Blood Urine Nitrate Urine Bilirubin Urine Urobilinogen Ur Leukocyte Esterase Urine RBC Urine WBC Ur Squamous Epith Cells Urine Bacteria Micro UA Comment Ur Microscopic Review Urine Culture Comments Microbiology 09/24/18 06:30 Stool Stool for WBCs - Final - Imaging Impressions Abdomen/Bladder Ultrasound 09/24/18 00:00 CONCLUSION: 1. No evidence of hydronephrosis. 2. Benign-appearing cyst along the upper pole the left kidney measuring 1.6 cm. 3. 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 Thyroid Ultrasound 09/24/18 00:00 CONCLUSION: 1. Diffusely enlarged and heterogeneous thyroid gland. The left lobe is larger than the right. 2. Multiple complex nodules are noted bilaterally. 3. It appears that the left lobe extends below the clavicle suggestive of a substernal goiter. Assessment and Plan - Assessment (1) Diverticulitis Code(s): K57.92 - Diverticulitis of intestine, part unspecified, without perforation or abscess without bleeding Status: Acute (2) Near syncope Code(s): R55 - Syncope and collapse Status: Acute (3) Dehydration Code(s): E86.0 - Dehydration Status: Acute (4) Diarrhea Code(s): R19.7 - Diarrhea, unspecified Status: Acute (5) Dysphagia Code(s): R13.10 - Dysphagia, unspecified Status: Acute (6) Weight loss Code(s): R63.4 - Abnormal weight loss Status: Acute - Plan 87-year-old female with history of HTN, HLD, hyperthyroidism, multinodular goiter, aortic stenosis, and GERD presenting with diarrhea, dehydration, near-syncope, and dysphagia. 1. Diarrhea - resolved - CT A/P showing sigmoid diverticulosis with no inflammatory changes - Pt with leukocytosis (WBC 15.5), LLQ pain, diarrhea, and known diverticulosis therefore will treat for early diverticulitis with Cipro and Flagyl - Pain control - Antiemetics PRN - C. diff negative - Stool studies pending - IV hydration - Clear liquids 2. MARY JO - resolved - Pt with no history of CKD - On admission, creatinine 1.36 with BUN 32 and GFR 37 - Given elevated BUN:Cr ratio, like prerenal secondary to dehydration from GI losses - Bolused in the ED and provided continuous IV fluids - Creatinine now down to 0.94 with BUN 14 - Decrease IV fluids to 50 ml/hr - Avoid nephrotoxins - Continue to watch renal function closely 3. Near-syncope - Pt likely experienced a near-syncopal episode secondary to dehydration/ orthostatics from diarrhea but she does have known aortic stenosis and coronary risk factors including HTN, HLD, history of tobacco abuse, and severe atherosclerosis seen on CT A/P - ACS ruled out - 2D echo with EF 65-70%, mild concentric LVH, grade 1 diastolic dysfunction, and [id number] aortic stenosis with low flow gradient - Given these findings, will consult patient's local prototype carpenter, Dr. Levy , to evaluate need for TAVR 4. Dysphagia, weight loss - Pt endorses a 14 lb weight loss in last month - Differentials include compression (thyroid, mass, etc.), esophageal stricture or dysmotility, severe GERD - GI consulted, planning for EGD - ST consulted and patient tolerated all consistencies with any overt signs/ symptoms of aspiration - Add Ensures TID to diet 5. Left cervical nodule - Not noted on ultrasound - To be followed as outpatient 6. Left renal lesion - CT A/P showing 1.4 cm left upper pole lesion and pt has been told she may have a kidney "tumor" in the past but hasn't been worked up - Renal ultrasound showed this as a benign-appearing cyst 7. HTN - Resume home Norvasc - Hold Valsartan and atenolol for now as some pressures have been fairly low - Monitor BPs 8. HLD - Resume home Zetia 9. GERD - Continue home Protonix and Zantac 10. Aortic stenosis - 2D echo as above - Monitor BPs closely and avoid hypotension - Keep hydrated - Consult cardiology to assess need for TAVR 11. Hyperthyroidism - Continue home methimazole - Thyroid U/S reviewed, report is similar to outpatient report - TSH checked last week and being addressed by technical supervisor DVT prophylaxis: heparin Discharge Planning: Anticipate D/C once GI work-up complete and cardiology has evaluated her, possibly tomorrow
[2018-09-25] MEDS ORDERED: Atenolol 25 MG Tablet PO SCH (10:00)
[2018-09-25] MEDS ORDERED: Magnesium Citrate Liq 300 ML Bottle PO ONE (10:00)
[2018-09-25] MEDS: amLODIPine 5 MG Tablet PO SCH (10:47)
[2018-09-25] MEDS: Dicyclomine 10 MG Capsule PO SCH ×2 (11:34→11:48)
[2018-09-25] MEDS: Famotidine 20 MG Tablet PO SCH ×2 (11:34→22:02)
[2018-09-25] MEDS: Ezetimibe 10 MG Tablet PO SCH (11:34)
[2018-09-25] MEDS: Tolterodine Tartrate LA 2 MG Capsule PO SCH ×2 (11:35→11:48)
--- NOTE | 2018-09-25 19:32 | MB ---
cc: Alvaro Levy DATE: 09/24/2018 IMPRESSION: 1. Abdominal pain, diarrhea, mild dehydration. 2. Valvular heart disease with aortic stenosis, moderate to severe, asymptomatic. 3. Recent negative stress tests. 4. Goiter. 5. Advanced age. 6. Hypothyroidism by history. 7. Hypertension. 8. Esophageal reflux disease. 9. History of diverticulosis. 10. Dyslipidemia. 11. Renal insufficiency. 12. Left renal mass. RECOMMENDATIONS: 1. The patient appears to be an adequate risk for endoscopy. She is anticipating EGD and colonoscopy. 2. Infective endocarditis prophylaxis. 3. Continue same medications. HISTORY OF PRESENT ILLNESS: The patient is an 87-year-old female who is admitted to the hospital with complaints of abdominal pain for 2 days. She had several episodes of diarrhea apparently prompting admission. She had an episode where she felt extremely weak. According to her daughter, she was unresponsive and somewhat diaphoretic. The patient thought she was having a stroke. She had never lost consciousness, but according to her, she was unable to speak clearly or make sense. She has a history of valvular heart disease. She has no history of peripheral vascular or atherosclerotic heart disease and no history of myocardial infarction, congestive heart failure or known cardiac arrhythmia/atrial fibrillation. MEDICATIONS: At the time of admission included: 1. Aspirin 81 mg daily. 2. Requip 0.25 mg at bedtime. 3. Ranitidine 300 mg daily. 4. Pantoprazole 40 mg daily. 5. Amlodipine 5 mg daily. 6. Atenolol 25 mg daily. 7. Meclizine 25 mg p.r.n. 8. Ezetimibe 10 mg daily. 9. Valsartan 320 mg daily. 10. Methimazole 10 mg daily. 11. Dicyclomine 10 mg daily. PAST SURGICAL HISTORY: Includes hip surgery, cholecystectomy, and herniorrhaphy. SOCIAL HISTORY: She does not use alcohol and has never been a smoker. ALLERGIES: SHE HAS NO ALLERGIES TO MEDICATIONS. PAST MEDICAL HISTORY: She has no previous history of seizure, stroke or TIA. No history of asthma, chronic bronchitis, or emphysema. There is a history of reflux esophagitis. REVIEW OF SYSTEMS: There is no history of overt peptic ulcer disease. She does have a history of diverticulosis. She has known about the renal mass. She has a history of thyroid disease and goiter. No history of DVT or pulmonary thromboembolic disease. She has had no recent chest pain, shortness of breath, lower extremity edema. She has had no palpitations. She did have a period of unresponsiveness, but excepting that, she has had no dizziness, no recent falls, etc. PHYSICAL EXAMINATION: GENERAL: At this time, demonstrates an alert, oriented female, who recognizes me when I enter the room. She is in a regular rhythm. VITAL SIGNS: Blood pressure 109/59, heart rate 76. HEENT: Anicteric sclerae. There is a murmur transmitted to both carotid arteries. No definite thrill noted at this time. She has clear lungs kaufman. CARDIAC: Regular rate and rhythm with a 3/6 systolic ejection murmur, which peaks late systole. Second heart sound is a single component. There are no gallops or diastolic murmurs. ABDOMEN: Soft and nontender currently. EXTREMITIES: Free of cyanosis, clubbing, edema. Echocardiogram demonstrates normal systolic function, normal left atrial chamber size with aortic stenosis. Peak velocities in the LV outflow tract 3.3 meters per second. DIAGNOSTIC DATA: A 12-lead electrocardiogram demonstrates sinus rhythm, left bundle branch block, with marked left axis deviation. LABORATORY DATA: On admission, electrolytes were 135, 4.6, 102, 21.8, BUN 32, creatinine 1.36, GFR 37. Troponin-I less than 0.02, lipase 268 normal, transaminases normal. White cell count 15,500, left shift, hematocrit was 44, platelet count 314. Chest x-ray unremarkable. DISCUSSION: An 87-year-old female with valvular heart disease, history of diverticulosis, admitted to the hospital with rather diffuse abdominal pain, diarrhea, mild dehydration, and a period of altered mental status, not associated with true syncope. Recommendations are as noted above. The patient appears to be an adequate risk for endoscopy. Would resume her medicines as prior to admission. Alvaro Levy DO BGS/sv , 05:38 PM , 05:47 PM
[2018-09-26] MEDS: metroNIDAZOLE 500 MG Tablet PO SCH ×2 (05:40→15:58)
[2018-09-26 07:27] VITALS: TEMP 98.2
[2018-09-26] MEDS: Sod Chloride 0.9% Inj 1,000 ML IV.CONT SCH (09:14)
[2018-09-26] MEDS: Ciprofloxacin 500 MG Tablet PO SCH (09:16)
[2018-09-26] MEDS: amLODIPine 5 MG Tablet PO SCH (09:27)
[2018-09-26] MEDS: Tolterodine Tartrate LA 2 MG Capsule PO SCH (09:28)
[2018-09-26] MEDS: Heparin - SQ 10,000 UNITS/ML Vial SQ SCH (09:30)
[2018-09-26] MEDS ORDERED: Metoprolol Tartrate 25 MG Tablet PO ONE (09:45)
[2018-09-26] MEDS ORDERED: Chlorhexidine Gluconate 2% 1 Pack (2 Cloths) TOPICAL ONE (09:45)
[2018-09-26] MEDS ORDERED: Sodium Chlor 0.9% Inj 500 ML IV.CONT ONE (09:45)
--- NOTE | 2018-09-26 11:29 | P.PNIM ---
Subjective Interval history: Pt seen and examined. Daughter at the bedside. Pt endorses some crampy lower abdominal pain and diarrhea from the colonoscopy prep but otherwise is feeling well. Denies CP, SOB, N/V. She is hopeful that the EGD will show a reason why she is having difficulty swallowing so that she can start to eat better and gain weight. Physical Exam Vital signs: Vital Signs 09/25/18 11:49 09/25/18 16:00 09/25/18 20:00 Temperature 97.7 F 97.6 F 97.7 F Pulse Rate 60 76 68 Respiratory Rate 16 16 16 Blood Pressure 136/64 149/68 H 151/71 H Pulse Oximetry 95 93 L 94 L 09/25/18 23:31 09/26/18 04:00 09/26/18 07:26 Temperature 97.7 F 97.8 F 98.2 F Pulse Rate 69 66 76 Respiratory Rate 16 16 16 Blood Pressure 148/70 H 142/67 H 141/72 H Pulse Oximetry 94 L 95 96 Intake & Output 09/25/18 09/26/18 09/26/18 18:59 06:59 18:59 Intake Total 1750 / 1750 800 / 800 Balance 1750 / 1750 800 / 800 Intake: IV 1000 / 1000 800 / 800 NS Inj 1,000 ML @ 50 mls/hr IV. 1000 / 1000 800 / 800 CONT .Q20H HERLINDA Rx#:[id number] Oral 750 / 750 Other: # Voids 5 # Bowel Movements 5 Narrative: GENERAL: WN, WD pleasant elderly female sitting on the side of the bed in [facility]. SKIN: Warm and dry. No rashes, jaundice, ecchymoses. HEART: RRR with a harsh 3/6 OLY that radiates to the carotids bilaterally. LUNGS: CTAB without wheezes or crackles. ABDOMEN: +BS, soft, NT, ND. EXTREMITIES: No LE edema. NEURO: Awake and alert. PSYCH: Appropriate mood and affect. Results - Labs CBC & Chem 7: 09/25/18 05:50 09/25/18 05:50 Microbiology 09/24/18 08:19 Clean Catch Urine Urine Culture - Final 50-100,000 cfu/mL mixed cody (probable contaminants ) Assessment and Plan - Assessment (1) Diverticulitis Code(s): K57.92 - Diverticulitis of intestine, part unspecified, without perforation or abscess without bleeding Status: Acute (2) Near syncope Code(s): R55 - Syncope and collapse Status: Acute (3) Dehydration Code(s): E86.0 - Dehydration Status: Acute (4) Diarrhea Code(s): R19.7 - Diarrhea, unspecified Status: Acute (5) Dysphagia Code(s): R13.10 - Dysphagia, unspecified Status: Acute (6) Weight loss Code(s): R63.4 - Abnormal weight loss Status: Acute - Plan 87-year-old female with history of HTN, HLD, hyperthyroidism, multinodular goiter, aortic stenosis, and GERD presenting with diarrhea, dehydration, near-syncope, and dysphagia. 1. Diarrhea - resolved - CT A/P showing sigmoid diverticulosis with no inflammatory changes - Pt with leukocytosis (WBC 15.5), LLQ pain, diarrhea, and known diverticulosis therefore empirically treated for early diverticulitis with Cipro and Flagyl - C. diff negative - No WBCs seen in stool - Other stool studies pending (enteric pathogens, Giardia) - IV hydration - Clear liquids 2. MARY JO - resolved - Pt with no history of CKD - On admission, creatinine 1.36 with BUN 32 and GFR 37. Given elevated BUN:Cr ratio, likely prerenal secondary to dehydration from GI losses - Bolused in the ED and provided continuous IV fluids - Creatinine normalized to 0.94 with BUN 14 - Avoid nephrotoxins 3. Near-syncope - Pt likely experienced a near-syncopal episode secondary to dehydration/ orthostatics from diarrhea but she does have known aortic stenosis and coronary risk factors including HTN, HLD, history of tobacco abuse, and severe atherosclerosis seen on CT A/P - ACS ruled out - 2D echo with EF 65-70%, mild concentric LVH, grade 1 diastolic dysfunction, and [id number] aortic stenosis with low flow gradient - Given these findings, will consult patient's local alcohol still operator, Dr. Levy , to evaluate need for TAVR. Recommend continuing same medications 4. Dysphagia, weight loss - Pt endorses a 14 lb weight loss in last month - Differentials include compression (thyroid, mass, etc.), esophageal stricture or dysmotility, severe GERD - GI consulted, planning for EGD today - ST consulted and patient tolerated all consistencies with any overt signs/ symptoms of aspiration - Ensures TID 5. Left cervical nodule - Not noted on ultrasound - To be followed as outpatient 6. Left renal lesion - CT A/P showing 1.4 cm left upper pole lesion and pt has been told she may have a kidney "tumor" in the past but hasn't been worked up - Renal ultrasound showed this as a benign-appearing cyst 7. HTN - Resume home Norvasc - Can restart atenolol - Hold Valsartan as some pressures have been fairly low - Monitor BPs 8. HLD - Resume home Zetia 9. GERD - Continue home Protonix and Zantac 10. Aortic stenosis - 2D echo as above - Monitor BPs closely and avoid hypotension - Keep hydrated - Patient's alcohol still operator following and aware 11. Hyperthyroidism - Continue home methimazole - Thyroid U/S reviewed, report is similar to outpatient report - TSH recently checked outpatient and being addressed by grainer machine DVT prophylaxis: heparin Discharge Planning: Possibly today after EGD/colonoscopy if patient remains stable
[2018-09-26] MEDS ORDERED: Ketamine Inj 500 MG/10 ML Vial ONE (14:37)
--- NOTE | 2018-09-26 15:14 | GIPROC ---
[facility] [address] [facility]. [facility], [address] COLONOSCOPY PROCEDURE REPORT EXAM DATE: 09/26/2018 PATIENT NAME: Calli South MR #: [id number] BIRTHDATE: 1930 ENDOSCOPIST: Brian Quinn MD ORDER #: [id number] WAREHOUSE FREIGHT HANDLER: Reid Shrestha and Jazzy Pantoja STATUS: inpatient INDICATIONS: The patient is a 87 yr old female here for a colonoscopy due to hematochezia PROCEDURE PERFORMED: Colonoscopy, diagnostic MEDICATIONS: Per Anesthesia and None. PREP QUALITY: poor ESTIMATED BLOOD LOSS: None CONSENT: The patient understands the risks and benefits of the procedure and understands that these risks include, but are not limited to: sedation, allergic reaction, infection, perforation and/or bleeding. Alternative means of evaluation and treatment include, among others: physical exam, x-rays, and/or surgical intervention. The patient elects to proceed with this endoscopic procedure. medical equipment was checked for proper function. Hand hygiene and appropriate measures for infection prevention was taken. After the risks, benefits and alternatives of the procedure were thoroughly explained, Informed consent was verified, confirmed and timeout was successfully executed by the treatment team. A digital exam was performed and revealed no abnormalities of the rectum The Pentax EC-[id number] endoscope was introduced through the anus and advanced to the cecum, which was identified by both the appendix and ileocecal valve. The instrument was then slowly withdrawn as the colon was fully examined. COLON FINDINGS: Moderate diverticulosis was noted throughout the entire examined colon. Retroflexed views revealed internal hemorrhoids and Retroflexed views revealed medium internal hemorrhoids The scope was then completely withdrawn from the patient and the procedure terminated. PROCEDURE WITHDRAWAL TIME:8minutes ADVERSE EVENTS: There were no complications. IMPRESSIONS: 1. Moderate diverticulosis was noted throughout the entire examined colon 2. Retroflexed views revealed internal hemorrhoids 3. Retroflexed views revealed medium internal hemorrhoids 4. Was performed 5. Revealed no abnormalities of the rectum RECOMMENDATIONS: Upper endoscopy RECALL: Return 1 year Colonoscopy Colon prep poor Brian Quinn MD eSigned: Brian Quinn MD 09/26/2018 3:13 PM cc: PATIENT NAME: Calli South MR#: [id number]
--- NOTE | 2018-09-26 15:16 | GIPROC ---
[facility] [address] [facility]. [facility], [address] EGD PROCEDURE REPORT EXAM DATE: 09/26/2018 PATIENT NAME: Calli South MR #: [id number] BIRTHDATE: 1930 ATTENDING: Brian Quinn MD ORDER #: [id number] DISTILLING DEPARTMENT SUPERVISOR: Reid Shrestha and Jazzy Pantoja STATUS: inpatient INDICATIONS: The patient is a 87 yr old female here for an EGD due to dyspepsia and dysphagia PROCEDURE PERFORMED: EGD, diagnostic MEDICATIONS: Per Anesthesia and None. TOPICAL ANESTHETIC: none CONSENT: The patient understands the risks and benefits of the procedure and understands that these risks include, but are not limited to: sedation, allergic reaction, infection, perforation and/or bleeding. Alternative means of evaluation and treatment include, among others: physical exam, x-rays, and/or surgical intervention. The patient elects to proceed with this endoscopic procedure. medical equipment was checked for proper function. Hand hygiene and appropriate measures for infection prevention was taken. After the risks, benefits and alternatives of the procedure were thoroughly explained, Informed consent was verified, confirmed and timeout was successfully executed by the treatment team. The patient was anesthetized with topical anesthesia and the EC-[id number] (Pedi C) endoscope was introduced through the mouth and advanced to the second portion of the duodenum. Retroflexed views revealed a hiatal hernia The gastroscope was then slowly withdrawn and removed. ESOPHAGUS: There was LA Class A esophagitis noted. STOMACH: The mucosa of the stomach appeared normal. DUODENUM: The duodenal mucosa appeared normal in the entire duodenum. ADVERSE EVENTS: There were no complications. IMPRESSIONS: 1. There was LA Class A esophagitis noted 2. The mucosa of the stomach appeared normal 3. Normal duodenal mucosa in the entire duodenum 4. Retroflexed views revealed a hiatal hernia RECOMMENDATIONS: Colonoscopy PATIENT CONDITION: stable DISPOSITION: Inpatient REPEAT EXAM: Return as needed for EGD Brian Quinn MD eSigned: Brian Quinn MD 09/26/2018 3:16 PM cc: PATIENT NAME: Calli South MR#: [id number]
[2018-09-26 15:25] VITALS: BP 120/58; PULSE 84; RESP 20; O2SAT 94
[2018-09-26] MEDS: Famotidine 20 MG Tablet PO SCH (15:47)
[2018-09-26] MEDS: Dicyclomine 10 MG Capsule PO SCH (15:49)
[2018-09-26] MEDS: Senna/Docusate Sodium 8.6/50 MG Tablet PO SCH (15:50)
[2018-09-26] MEDS: Ezetimibe 10 MG Tablet PO SCH (15:58)
--- NOTE | 2018-09-26 16:36 | P.DS ---
Date of admission: 09/24/18 06:28 Primary care physician: José Nash Attending physician on discharge: Zabrina Escobar Anticipated date of discharge: 09/26/18 Brief History from admission: 87-year-old pleasant female with history of HTN, HLD, hyperthyroidism , multinodular goiter, aortic stenosis, and GERD presented to the ED after feeling like she was going to pass out earlier this morning. The patient states that she was sleeping when she began to have diarrhea around 3 AM. She states she got up to use the restroom and had a significant amount of watery, nonbloody diarrhea. On her way back to her bedroom she states she began feeling lightheaded, sweaty, and like she was going to pass out. She states she got her daughter but was unable to communicate. Her daughter who is present at the bedside states that the patient was just staring blankly. EMS was called and within 5 minutes the patient was able to speak. She states that she had some left-sided chest pain that radiated to her left shoulder at the time of the event. She denied any shortness of breath, palpitations, or vomiting. She states that she was nauseated. Presently, she reports that she is feeling much better but continues to have watery diarrhea. She states she has had about 5-6 episodes total and she is experiencing some incontinence. She also complains of some left lower quadrant crampy abdominal pain associated with the diarrhea. She states she has a history of diverticulitis which this feels similar to. She also reports in the last month she has lost about 14 lb which she attributes to poor PO intake. She states that she has dysphagia and can only force herself to swallow a couple bites of food before she feels like vomiting and choking. She is able to tolerate liquids. The dysphagia has been present for approximately a month. She has a h/o of multinodular goiter and on ultrasound last year was noted to have a new ~3.5 cm nodule in the left lower lobe (reviewed endocrinology notes that patient provides). She had an uptake scan which showed the nodule was hot and she was started on methimazole. 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 She states aside from the dysphagia she also has a cough that has always been attributed to sinus drainage as well as a pain in the left side of her neck where she states she has felt a lump. She denies any history of head or neck radiation. She used to smoke but quit in 1980. The patient is from [place] but has been here for the past month living with her daughter for part of the year. She follows with a orthotist, primary care physician, an city plant supervisor in [place]. She recently saw Dr. Levy (local orthotist) in the past month at the urging of her PCP back in [place] whom she states was very concerned about her aortic stenosis. She apparently had a stress test that was negative. She states her last echo was in April. She states she has passed out before but denies CHF or coronary artery disease though she has never had a cath. She also reports in the past she was told she may have a small tumor in her kidney but she states nothing more was done. CT A/P here in the ED showed a 1.4 cm hyperdense lesion in the left upper pole. PMH: HTN, hyperthyroidism, multinodular goiter, HLD, GERD, OA, macular degeneration diverticulosis, vertigo, aortic stenosis Surgical Hx: L hip replacement, left thumb surgery, cataract, T&A, umbilical hernia repair, lap maria luz, D&C, hemorrhoidectomy, right knee arthroscopy Family Hx: mother in her 90s froma stroke, father at 43 from a head injury Social Hx: quit smoking 1980, prior smoked up to 1PPD x 15 years, denies EtOH or recreational drug Patient update on day of discharge: Pt seen and examined. Daughter at the bedside. Pt endorses some crampy lower abdominal pain and diarrhea from the colonoscopy prep but otherwise is feeling well. Denies CP, SOB, N/V. She is hopeful that the EGD will show a reason why she is having difficulty swallowing so that she can start to eat better and gain weight. DS: Diagnosis - Discharge Diagnosis (1) Diverticulitis Status: Acute (2) Near syncope Status: Acute (3) Dehydration Status: Acute (4) Diarrhea Status: Acute (5) Dysphagia Status: Acute (6) Weight loss Status: Acute DS: Medications - Discharge Medications Prescriptions: ciprofloxacin HCl 500 mg PO Q12HR #10 tab metronidazole 500 mg PO Q8HR #15 tab DS: Summary Hospital Course: 87-year-old female with history of HTN, HLD, hyperthyroidism, multinodular goiter, aortic stenosis, and GERD presenting with diarrhea, dehydration, near-syncope, and dysphagia. She was also found to have acute kidney injury suspected to be prerenal secondary to hypovolemia which resolved with IV fluids. Her CT scan showed diverticulosis with no acute inflammatory changes but given her leukocytosis, left lower quadrant pain, and diarrhea she was empirically treated with Flagyl and Cipro. GI was consulted for her dysphasia and weight loss and the patient underwent EGD on 09/26 showing esophagitis. She also underwent colonoscopy which showed diverticulosis and hemorrhoids. Her orthotist was also consulted given severe aortic stenosis with low-flow seen on 2D echo. Her diarrhea resolved, she remained clinically stable, and she was discharged in stable condition on 09/26 peer - Time Spent with Patient Total time spent providing and/or coordinating discharge services: Less than 30 minutes - Quality: VTE Deep Vein Thrombosis/Pulmonary Embolism Present on Admission: No Exam Vital signs: Vital Signs 09/25/18 20:00 09/25/18 23:31 09/26/18 04:00 Temperature 97.7 F 97.7 F 97.8 F Pulse Rate 68 69 66 Respiratory Rate 16 16 16 Blood Pressure 151/71 H 148/70 H 142/67 H Pulse Oximetry 94 L 94 L 95 09/26/18 07:26 09/26/18 10:00 09/26/18 15:09 Temperature 98.2 F 98.2 F Pulse Rate 76 93 H 84 Respiratory Rate 16 20 Blood Pressure 141/72 H 120/58 L Pulse Oximetry 96 94 L Intake & Output 09/25/18 09/26/18 09/26/18 18:59 06:59 18:59 Intake Total 1750 / 1750 1300 / 1300 Balance 1750 / 1750 1300 / 1300 Intake: IV 1000 / 1000 800 / 800 NS Inj 1,000 ML @ 50 mls/hr IV. 1000 / 1000 800 / 800 CONT .Q20H HERLINDA Rx#:[id number] Oral 750 / 750 Anesthesia Amount 500 / 500 Other: # Voids 5 1 Date of Last Bowel Movement 09/25/18 # Bowel Movements 5 Narrative: GENERAL: WN, WD pleasant elderly female sitting on the side of the bed in NAD. SKIN: Warm and dry. No rashes, jaundice, ecchymoses. HEART: RRR with a harsh 3/6 OLY that radiates to the carotids bilaterally. LUNGS: CTAB without wheezes or crackles. ABDOMEN: +BS, soft, NT, ND. EXTREMITIES: No LE edema. NEURO: Awake and alert. PSYCH: Appropriate mood and affect. Results Procedures completed during hospitalization: EGD 09/26: esophagitis Colonoscopy 09/26: hemorrhoids Completed studies during hospitalization: 2D echo showing moderate to severe aortic stenosis with low-flow, EF 65-70% - Impressions ITS Impressions Abdomen/Bladder Ultrasound 09/24/18 00:00 CONCLUSION: 1. No evidence of hydronephrosis. 2. Benign-appearing cyst along the upper pole the left kidney measuring 1.6 cm. 3. 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 Thyroid Ultrasound 09/24/18 00:00 CONCLUSION: 1. Diffusely enlarged and heterogeneous thyroid gland. The left lobe is larger than the right. 2. Multiple complex nodules are noted bilaterally. 3. It appears that the left lobe extends below the clavicle suggestive of a substernal goiter. Abdomen/Pelvis CT 09/24/18 04:16 CONCLUSION: 1. No acute abnormality is identified to explain the left lower quadrant pain. There is sigmoid diverticulosis but no inflammatory changes are present. 2. There is a 1.4 cm hyperdense lesion in the left upper pole kidney. This could represent a complex cyst or solid lesion. Suggest correlating with any prior imaging studies. If none are available suggest elective renal ultrasound for further evaluation. 3. Severe atherosclerotic disease. Discharge Plan - Discharge Disposition Patient Disposition: Discharge Home - Discharge Condition Condition: Stable - Discharge Order Discharge Orders: Discharge Order (Routine); Ordered 09/26/18 Ordered By: Zabrina Escobar - Discharge Details Anticipated Discharge Date: 09/26/18 - Physicians Team Attending Provider: Zabrina Escobar Other Providers: Jia Malik MD ; Alvaro Levy DO
== END 2018-09-26 17:00 | disposition home or self-care (01) ==
LOC: NEPE 03:52 → NEDH 03:52 → NEPGCP 09:05
PROVIDERS: ADMIT Family Medicine; ATTEND Family Medicine
PROC: PANENDO (2018-09-26 14:27)
PROC: COLONOS (2018-09-26 14:27)